=== PATIENT | male | born 1970 | race Caucasian/White ===

== ENCOUNTER 2018-10-04 10:41 | Inpatient (IN) | payer OTHER ==
[~2018-10-04] VITALS: Ht 160 cm; Wt 60.8 kg
--- NOTE | 2018-10-04 10:48 | NUR ---
PT CALLED FROM LOBBY TO TRIAGE, PT IN RESTROOM.
--- NOTE | 2018-10-04 11:00 | NUR ---
PATIENT ARRIVED TO ED WITH CAREGIVER C/O PAIN ON LEFT LEG, INNER THIGH AREA. PATIENT HAS HX OF DOWN SYNDROME AND MILD MENTAL RETARDATION. CAREGIVER STATES THAT PATIENT FELL YESTERDAY WHILE WALKING IN THE RAIN. UPON PALPATION, A LUMP WAS NOTED WITHIN THE INNER LEFT THIGH AREA. LUNGS ARE CLEAR, EVEN AND UNLABORED. NO OTHER S/S OF DISTRESS NOTED. WILL CONTINUE TO MONITOR.
--- NOTE | 2018-10-04 11:01 | NUR ---
PATIENTS CAREGIVER DENIES THAT PATIENT HIT HIS HEAD OR HAD ANY LOC.
--- NOTE | 2018-10-04 11:16 | NUR ---
PATIENT TAKEN TO XRAY. NO S/S OF DISTRESS NOTED.
--- NOTE | 2018-10-04 12:42 | NUR ---
PATIENT WHEELED FOR CT SCAN. NO ACUTE S/S OF DISTRESS NOTED.
[2018-10-04] MEDS ORDERED: KETOCONAZOLE2% TOP (14:58)
--- NOTE | 2018-10-04 15:17 | NUR ---
ORTHO MD HAS SEEN PT WITH HIS CAREGIVER PRESENT. DISCUSSED WITH CAREGIVER THAT THERE IS NO HX OTHER THAN MILD TO MODERATE M.R. AND DOWNS SYNDROME. IS COOPERATIVE ONLY TO SOME ASSESSMENTS, WOULD NOT TOLERATE EXTENDED SEARCH FOR PEDAL PULSES. WAS ABLE TO NOTE FEET- SKINS AND CAPILLARY REILL NORMAL AND EQUAL BILATERALLY, NORMALLY WEARS SUPPORT STOCKINGS FOR EDEMA. SLIGHTLY ELECTRIC WIRER DISTALLY, SIGNIFICANT SUPERFICIAL VERICOSE VEINS. BEHAVIOR: ADVISED TO PRE MED PO BENADRYL OR SEDATIVE FOR COOPERATION WITH ANY PROCEDURES.
--- NOTE | 2018-10-04 15:32 | NUR ---
ATTEMPTED TO START IV FOR ADMISSION, PATIENT REFUSED.
--- NOTE | 2018-10-04 15:41 | NUR ---
REPORT GIVEN TO DARLIN JAQUEZ ON MED SURG TELE FLOOR FOR FUTHER CARE OF PATIENT.
[2018-10-04 16:13] VITALS: BP 113/77
--- NOTE | 2018-10-04 16:25 | NUR ---
RECEVIED PT FROM ER. PT ADMIT FOR LEFT FEMERAL NECK FX, PT IS A/O X1, CONFUSED BUT FOLLOW COMMAND. LUNG SOUND CLEAR BILATERAL, NO COUGH, NO SOB, PT DENY ANY CHEST PAIN, BOWEL SOUND PRESENT ALL 4 QUADRANTS, NO DISTENTION, NO TENDER. PEDAL PULS PRESENT BOTH FEET, TRACE EDEMA BLE. PT C/O MILD PAIN AT LEFT HIP AREA. 11/27, NO IV SITE PIOR TO ARRIVE THE FLOOR. ACCORDING TO REPORT AND CAREGIVER, PT REFUSED TO BE INSERT THE IV AND VERY AGITATED WHILE TRIED IN ER. ALL ADLS ASSIST, ALL NEED MET, BED ALARM IS IN PLACE, CALL LIGHT WITHIN REACH. WILL CONTINUE TO MONITOR.
--- NOTE | 2018-10-04 17:50 | NUR ---
PT ON BED, EATING DINNER. MERCHANDISE CLERK AT BEDSIDE
--- NOTE | 2018-10-04 18:50 | NUR ---
BENADRYL ONE TIME GIVEN
--- NOTE | 2018-10-04 19:30 | NUR ---
REC'D PT FROM DAY NURSE. CAREGIVER MELANI AT BEDSIDE. PT RESTING IN BED. AAOX2-3. ORIENTED TO SELF, TIME, AND CITY. REORIENTED TO PLACE. SPEECH IMPAIRMENT BUT ABLE TO UNDERSTAND AT TIMES. FOLLOWS COMMANDS AND ABLE TO VERBALIZE NEEDS. HX DOWN SYNDROME WITH MILD MR. MED SURG, NO TELE. DENIES CP, DIZZINESS, OR PALPITATIONS. ABD SOFT/ROUND. DENIES ABD PAIN, TENDERNESS, OR N/V. USUALLY VOIDS FREELY BUT HAVING DIFFICULTY AT THIS TIME BC PT IS ON BEDREST AND CANNOT GET OOB. C/O PAIN TO LLE BY HIP, UNABLE TO RATE. WILL GIVE NORCO PER ORDER. SKIN INTACT. NO IV ACCESS AT THIS TIME. WILL ATTEMPT. CALL LIGHT WITHIN REACH, BED AT LOWEST POSITION. WILL CONTINUE TO MONITOR.
--- NOTE | 2018-10-04 19:59 | NUR ---
SPOKE TO DR. TILLMAN. MADE AWARE PT STILL DOES NOT HAVE IV ACCESS AND BENADRYL INEFFECTIVE IN CALMING TO PT TO ATTEMPT ACCESS. REQUESTED ONE TIME ATIVAN PO.
[2018-10-04 20:26] VITALS: BP 119/69
--- NOTE | 2018-10-04 20:45 | NUR ---
ATTEMPTED TO INSERT IV BUT PT REFUSING. MELANI, CAREGIVER, AT BEDSIDE. PT KEEPS PULLING ARMS AWAY AND SAYING NO. WILL TRY AGAIN LATER.
--- NOTE | 2018-10-04 21:27 | NUR ---
SECOND ATTEMPT FOR IV INSERTION. PT STILL REFUSING COVERING HIS ARMS WITH BLANKETS AND SAYING NO. STATES HE WILL LET US INSERT AN IV IN THE MORNING. WILL REATTEMPT IN AM.
--- NOTE | 2018-10-04 22:24 | NUR ---
PAGEGATED DR. TILLMAN. MADE AWARE BUCKS TRACTION- 7LBS NEEDS TO BE APPLIED ORDERED BY DR. ELLER.
--- NOTE | 2018-10-04 23:20 | NUR ---
BUCKS TRACTION APPLIED. LLE BOOT IN PLACE WITH 7 LBS FREE HANGING WEIGHT. PT RESTING IN BED WITH EYES CLOSED. APPEARS TO BE SLEEPING. CALL LIGHT WITHIN REACH, BED AT LOWEST POSITION. WILL CONTINUE TO MONITOR.
--- NOTE | 2018-10-05 03:55 | NUR ---
PT RESTING IN BED WITH EYES CLOSED. NO SIGNS OF DISTRESS NOTED. BREATHING EVEN/UNLABORED ON RA. BUCKS TRACTION IN PLACE- 7 LBS FREE HANGING WEIGHT. CALL LIGHT WITHIN REACH, BED AT LOWEST POSITION. WILL CONTINUE TO MONITOR.
--- NOTE | 2018-10-05 06:03 | NUR ---
ATTEMPTED IV INSERTION BUT PT STILL REFUSING. KEEPS PULLING HAND AWAY. OTHERWISE PT HAS BEEN CALM AND PLEASANT. SLEPT THROUGHOUT MOST OF THE NIGHT. DENIES PAIN. STATES HIS LEG "IS BETTER." BUCKS TRACTION IN PLACE. CALL LIGHT WITHIN REACH, BED AT LOWEST POSITION. WILL ENDORSE TO DAY NURSE.
--- NOTE | 2018-10-05 07:35 | NUR ---
PATIENT RESTING IN BED. SITTER AT BEDSIDE FOR SAFETY. PATIENT DENIES PAIN AT THIS TIME, INSTRUCTED PT TO CALL IF HE FEELS ANY PAIN. PATIENT IS A/OX3 (PERSON, PLACE, AND TIME). BUCKS TRACTION IN PLACE; 7LBS. WEIGHTS MAINTAINED OF THE FLOOR, PATIENT UNDERSTANDS HE IS TO REMAIN IN BED. DENIES SOB, PT ON ROOM AIR. NO IV ACCESS, PATIENT REFUSES IV INSERTION, DR REED AWARE. CALL LIGHT WITHIN REACH, BED IN LOW POSITION, SIDE RAILS UP X2. WILL CONTINUE TO MONITOR.
--- NOTE | 2018-10-05 10:10 | NUR ---
PATEINT REFUSED HEPARIN (SEE EMAR), DR REED AWARE. PT APPEARED SCARED OF NEEDLES. PT COVERED HIS ARM WHEN ATTEMPTING TO DEMONASTRATE THE INJECTION. NO FURTHER ORDERS AT THIS TIME. WILL CONTINUE TO MONITOR THE PATIENT.
[2018-10-05 12:20] VITALS: Ht 160 cm; Wt 60.8 kg
[2018-10-05 13:20] VITALS: BP 106/61
[2018-10-05 14:48] LABS: CARBON DIOXIDE 23.6 mmol/L (21-32); CHLORIDE SERUM 104 mmol/L (98-107); GFR1 > 60 mL/min; GLUCOSE SERUM 117 mg/dL (74-106); MAGNESIUM 2.2 mg/dL (1.8-2.4); PHOSPHOROUS 3.3 mg/dL (2.5-4.9); POTASSIUM SERUM 4.1 mmol/L (3.5-5.1); SODIUM SERUM 143 mmol/L (136-145)
[2018-10-05 14:50] LABS: PLATELET COUNT 230 x10^3mcL (130-400); RED CELL DISTRIBUTION WIDTH 14.1 % (11.5-14.5)
[2018-10-05 14:51] LABS: MAGNESIUM 2.1 mg/dL (1.8-2.4); PHOSPHOROUS 3.3 mg/dL (2.5-4.9)
[2018-10-05 14:53] LABS: CHOLESTEROL/HDL RATIO 2.4
--- NOTE | 2018-10-05 16:20 | NUR ---
PATIENT WILL OCCASIONALLY BIT DOWN ON RIGHT THUMB FINGER. WOUND WAS CLEANED PHOTOS DOCUMENTED AND PLACED A GAUZ AND TAPE, TO PREVENT PATIENT FROM BITTING FINGER. WILL MONITOR CONTINUE TO MONITOR.
[2018-10-05 16:53] VITALS: BP 96/49
--- NOTE | 2018-10-05 18:56 | NUR ---
PATIENT RESTING IN BED. NO ACUTE CHANGES THROUGH OUT SHIFT, PATIENT IS STABLE. DENIES PAIN AT THIS TIME. NO SOB NOTED, PATIENT ON ROOM ON AIR. BUCKS TRACTION IN PLACE; 7LBS. WEIGHTS MAINTAINED OFF THE FLOOR. NS IV INFUSING TO LFA AT 100ML/HR, CDI, NO REDNESS, SWELLING OR PAIN NOTED. CALL LIGHT WITHIN REACH, BED IN LOW POSITION, SIDE RAILS UP X2 FOR SAFETY PRECAUTION. WILL ENDORSE REPORT TO NIGHT NURSE.
--- NOTE | 2018-10-05 19:20 | NUR ---
REC'D PT FROM DAY NURSE. PARENTS AT BEDSIDE. PT RESTING IN BED. AAOX3. HX DOWN SYNDROME WITH MILD MR. SPEECH IMPAIRMENT BUT ABLE TO UNDERSTAND. FOLLOWS COMMANDS AND VERBALIZES NEEDS. MED SURG, NO TELE. DENIES CP, DIZZINESS, OR PALPITATIONS. NO EDEMA NOTED. DENIES RESP DISTRESS OR SOB. BREATHING EVEN/UNLABORED ON RA. ABD SOFT/ROUND. DENIES ABD PAIN, TENDERNESS, OR N/V. VOIDING FREELY. BUCKS TRACTION- 7 LBS ATTACHED TO LLE BOOT FREE HANGING WEIGHT. TRAPEZE IN PLACE. PT DENIES ANY PAIN TO THE HIP. SKIN INTACT. IV TO FLUSHED AND PATENT, SITE WNL. CALL LIGHT WITHIN REACH, BED AT LOWEST POSITION. WILL CONTINUE TO MONITOR.
[2018-10-05 20:41] VITALS: BP 115/73
--- NOTE | 2018-10-05 23:13 | NUR ---
PT RESTING IN BED. CALM AND PLEASANT. REPORTS PAIN TO LLE/HIP. UNABLE TO RATE BUT APPEARS COMFORTABLE. SMILING. TYLENOL GIVEN PER ORDER. BUCKS TRACTION IN PLACE. WILL CONTINUE TO MONITOR.
--- NOTE | 2018-10-06 00:51 | NUR ---
PT RESTING IN BED WITH EYES CLOSED. NO SIGNS OF DISTRESS NOTED. BREATHING EVEN/UNLABORED ON RA. CALL LIGHT WITHIN REACH, BED AT LOWEST POSITION. BUCKS TRACTION IN PLACE WITH 7 LBS FREE HANGING WEIGHT. WILL CONTINUE TO MONITOR.
[2018-10-06 02:27] LABS: microscopic required? NO
[2018-10-06 02:38] LABS: UA SPECIFIC GRAVITY 1.015 (1.005-1.035); urine erythrocyte NEGATIVE (NEGATIVE)
--- NOTE | 2018-10-06 06:09 | NUR ---
PT RESTING IN BED WITH EYES CLOSED. APPEARS TO BE SLEEPING. BREATHING EVEN/UNLABORED ON RA. BUCKS TRACTION IN PLACE. NO SIGNIFICANT CHANGES DURING SHIFT. CALL LIGHT WITHIN REACH, BED AT LOWEST POSITION. WILL ENDORSE TO DAY NURSE.
[2018-10-06 06:14] VITALS: BP 105/58
--- NOTE | 2018-10-06 07:25 | NUR ---
RECEIVED PATIENT RESTING COMFORTABLY IN BED WITH ROMERO'S TRACTION AT 7LBS. CIRCULATION MAINTAINED. NO C/O PAIN. IV TO LFA IS PATENT AND INFUSING NS @ 100 ML/HR. NO REDNESS OR PAIN. PT ON ROOM AIR. NO C/O SOB AND NO DISTRESS NOTED. ALL QUESTIONS AND CONCERNS ADDRESSED.
[2018-10-06 07:50] VITALS: BP 116/65
--- NOTE | 2018-10-06 10:16 | NUR ---
IN TO SEE PATIENT AND ADMINISTER MEDICATION (SEE EMAR).
--- NOTE | 2018-10-06 12:08 | NUR ---
IN TO SEE PATIENT AND CONTINUE FLUIDS. PT RESTING COMFORTABLY IN BED. ALL NEEDS MET.
--- NOTE | 2018-10-06 14:20 | NUR ---
IN TO SEE PATIENT AND ASSESS NEEDS. ALL NEEDS MET.
[2018-10-06 18:33] VITALS: BP 107/58
--- NOTE | 2018-10-06 19:35 | NUR ---
REPORT GIVEN TO JAZZMINE JAQUEZ. PT RESTING COMFORTABLY IN BED. ALL NEEDS MET. ALL QUESTIONS AND CONCERNS ADDRESSED. ALL CARES ENDORSED.
--- NOTE | 2018-10-06 20:00 | NUR ---
PT A/A/O X3 ABLE TO FOLLOW COMMAND AND MAKE NEEDS KNOWN. DENIES DIZZINESS AND HEADACHE. BREATH SOUNDS CLEAR. BREATHING EVEN AND UNLABORED ON ROOM AIR. DENIES CHEST PAIN AND PRESSURE. BOWEL SOUNDS ACTIVE. NO C/O N/V AND ABD PAIN. 7 LBS BUCKS TRACTION NOTED ON LLE. PT DENIES DISCOMFORT AND PAIN THUS FAR. IV INTACT ON THE LEFT FOREARM INFUSING WITH NS AT 100 ML/HR. MADE PT COMFORTABLE. PLACED CALL LIGHT WITH IN REACH. WILL CONTINUE TO MONITOR.
[2018-10-06 22:30] VITALS: BP 114/69
--- NOTE | 2018-10-07 00:58 | NUR ---
PT RESTING WITH EYES CLOSED. NO DISTRESS AND DISCOMFORT NOTED. WILL CONTINUE TO MONITOR.
[2018-10-07 05:24] VITALS: BP 105/70
[2018-10-07 06:09] LABS: BASOPHIL % 0.4 % (0-2); PLATELET COUNT 202 x10^3mcL (130-400)
[2018-10-07 06:34] LABS: CALCIUM 8.6 mg/dL (8.5-10.1); CARBON DIOXIDE 27.7 mmol/L (21-32); CHLORIDE SERUM 107 mmol/L (98-107); CREATININE SERUM 0.7 mg/dL (0.7-1.3); GFR1 > 60 mL/min; GLUCOSE SERUM 90 mg/dL (74-106); POTASSIUM SERUM 4.2 mmol/L (3.5-5.1); SODIUM SERUM 144 mmol/L (136-145)
--- NOTE | 2018-10-07 06:58 | NUR ---
PT QUIET AND RESTING. ADMITS TO DISCOMFORT AND DENIES NEED FOR PAIN MEDICATION. IV INTACT AND INFUSING ORDERED. BUCKS TRACTION IN PLACE. MADE PT COMFORTABLE. PLACED CALL LIGHT WITH IN REACH. WILL ENDORSE TO THE AM NURSE ACCORDINGLY.
--- NOTE | 2018-10-07 08:00 | NUR ---
RECEIVED PT IN BED A/A/OX3 HX DOWN SYNDROME AND MILD MR. PT ABLE TO VERBALIZE NEEDS AND FOLLOW COMMAND WITH MILDLY GARBLED SPEECH. RESP EVEN AND UNLABORED WITH CLEAR BS BILAT. DENIES ANY SOB/CP/PRESSURE. NO EDEMA NOTED WITH IVF TO LFA. ABD SOFT, NONTENDER WITH ACTIVE BS X4. USES URINAL. S/P FALL AT HOME WITH LT HIP FX. PT IN BUCKS TRACTION WITH 7LBS. ABLE TO REPOSITION SELF INDIPENDENTLY. CALL LIGHT IN REACH NEEDS ATTENDED TO.
--- NOTE | 2018-10-07 10:02 | NUR ---
REPORT GIVEN TO OR, MADE AWARE THAT PARENTS WANTED TO SPEAK WITH DR. CASTELLON PRIOR TO SIGNING CONSENT.
[2018-10-07 12:45] VITALS: BP 114/64
--- NOTE | 2018-10-07 12:55 | NUR ---
PT PICKED UP BY OR AND TAKEN DOWN FOR PROCEDURE. PT LEFT FLOOR FREE OF ANY APPARENT DISTRESS ACCOMPANIED BY FAMILY. CALL LIGHT IN REACH NEEDS ATTENDED TO.
--- NOTE | 2018-10-07 16:06 | NUR ---
PT BACK FROM OR S/P ORIF OF THE LT HIP WITH PLACEMENT OF 3 SCREWS. PT IS A/A/OX3 DENIES ANY DISCOMFORT. RESP EVEN AND UNLABORED. RECONNECTED BACK ON IVF ORDERED. PT DENIES ANY PAIN AT THIS TIME. SX SITE TO LT HIP WITH DRSG IN PLACE CDI, NO S/SX OF BLEEDING NOTED. FAMILY AT BEDSIDE. CALL LIGTH IN REACH NEEDS ATTENDED TO.
[2018-10-07 16:10] VITALS: BP 116/78
--- NOTE | 2018-10-07 17:00 | NUR ---
DRSG CHECK AT THIS TIME. REMAINS DRY AND INTACT. C/O MILD THROAT DISCOMFORT. MADE AWARE FROM INTUBATION DURING PROCEDURE. CALL LIGHT IN REACH NEEDS ATTENDED TO.
--- NOTE | 2018-10-07 18:10 | NUR ---
PT C/O PAIN TO LT LEG AND THROAT. MEDICATED WITH NORCO PO AND GIVEN PUDDING AND JELLO. IVF INFUSING. CALL LIGHT IN REACH NEEDS ATTENDED TO.
--- NOTE | 2018-10-07 19:20 | NUR ---
AOX3. MED SURG. LUNGS CLEAR ON RA. PULSES PALPABLE. NO EDEMA. BOWEL SOUNDS ACTIVE. VOIDS FREELY. LIMITED MOVEMENT TO LLE. S/P L HIP ORIF, DRESSING CDI. DRY SCAB NOTED TO R ABISAI NEWMAN. DENIES PAIN AT THIS TIME. IV TO LFA, PATENT AND INFUSING. SITTER AT BEDSIDE. BED IN LOWEST POSITION, 2 SIDE RAILS UP, CALL LIGHT IN REACH. INSTRUCTED TO CALL FOR ASSISTANCE.
[2018-10-07 21:18] VITALS: BP 96/52
--- NOTE | 2018-10-08 01:23 | NUR ---
RESTING IN BED WITH EYES CLOSED. BREATHING EVEN AND UNLABORED ON RA. NO ACUTE DISTRESS NOTED. SITTER AT BEDSIDE. WILL CONTINUE TO MONITOR.
[2018-10-08 05:31] VITALS: BP 99/42
--- NOTE | 2018-10-08 06:57 | NUR ---
NO ACUTE DISTRESS NOTED. NO ACUTE CHANGES. DRESSING TO L HIP, CDI. WILL ENDORSE TO ONCOMING RN.
--- NOTE | 2018-10-08 07:50 | NUR ---
RECEIVED PT IN BED A/A/OX3 FORGETFUL. DENIES GOMES. HX DOWN SYNDROME AND MILD MR. SLIGHTLY GARBLED SPEECH, ABLE TO COMMUNICATE NEEDS AND FOLLOW COMMANDS. RESP EVEN AND UNLABORED WITH CLEAR BS BILAT. DENIES ANY SOB/CP/PRESSURE. NOTED WITH TRACE EDEMA TO BLE L>R. IVF TO LFA. ABD SOFT, NONTENDER WITH ACTIVE BS X4. DENIES ANY N/V AT THIS TIME. VOIDING FREELY USES URINAL. S/P FALL AT HOME WITH LT HIP FX. S/P ORIF POD1. LT HIP WITH SX DRSG IN PLACE CDI. WITH ORDER FOR PT EVAL TODAY. DENIES ANY PAIN AT THIS TIME. CALL LIGHT IN REACH NEEDS ATTENDED TO.
--- NOTE | 2018-10-08 08:25 | NUR ---
PT C/O MILD PAIN MADE AWARE BY PT THAT THEY WILL WORK WITH PT WITH IN 1HR. PT PRE MEDICATED FOR PLANNED ACTIVITY. CALL LIGTH IN REACH NEEDS ATTENDED TO.
[2018-10-08 08:47] VITALS: BP 108/59
--- NOTE | 2018-10-08 15:08 | NUR ---
PT C/O MILD PAIN TO LLE. MEDICATED WITH NORCO PO ORDERED. CALL LIGHT IN REACH NEEDS ATTENDED TO.
--- NOTE | 2018-10-08 18:20 | NUR ---
PT RESTING AT THIS TIME. DENIES ANY DISCOMFORT. CALL LIGHT IN REACH NEEDS ATTENDED TO.
[2018-10-08 19:51] VITALS: BP 104/57
--- NOTE | 2018-10-08 20:00 | NUR ---
RECEIVED PT FROM PREVIOUS SHIFT. PT AWAKE/ALERT. DENIES PAIN. NO S/S OF SOB ON ROOM AIR. TRAPEZE ON BED S/P ORIF TO L FEMORAL NECK. IV TO LFA PATENT, INFUSING NS AT 100ML/HR WITH NO S/S OF INFILTRATION. CALL LIGHT WITHIN REACH, BED IN LOW POSITION. WILL CONTINUE TO MONITOR.
--- NOTE | 2018-10-09 02:00 | NUR ---
PT SLEEPING. NO SIGNS OF ACUTE DISTRESS. RR EVEN/UNLABORED. CALL LIGHT WITHIN REACH. BED IN LOW POSITION. WILL CONTINUE TO MONITOR.
[2018-10-09 05:27] VITALS: BP 111/67
--- NOTE | 2018-10-09 06:10 | NUR ---
NO ACUTE CHANGES THROUGHOUT SHIFT. PT RESTING IN NO DISTRESS. CALL LIGHT WITHIN REACH, BED IN LOW POSITION. WILL ENDORSE CARE TO ONCOMING SHIFT.
--- NOTE | 2018-10-09 07:49 | NUR ---
REPORT TAKEN FROM TIMBER MANAGEMENT SPECIALIST NURSE AT THE BEDSIDE. PT RESTING COMFORTABLY AT THIS TIME. AWAKE AND ALERT OX3. TRACE EDEMA TO THE LOWER EXT BILATERALLY. LUNGS CTAB. BOWEL SOUNDS POSITIVE, FLAT NON TENDER. LEFT HIP DRESSING INTACT, DRY, AND CLEAN. IV TO LEFT FA WNL.
[2018-10-09 08:44] VITALS: BP 92/41
--- NOTE | 2018-10-09 13:09 | NUR ---
PT IN NAD AT THIS TIME, VISITING WITH FAMILY, TOLERATED PT WELL AND GOT OUT OF THE BED. DENIED PAIN AT THIS TIME. WILL CONTINUE TO MONITOR.
[2018-10-09 13:19] VITALS: BP 92/41
[2018-10-09 14:04] VITALS: BP 103/64
--- NOTE | 2018-10-09 14:56 | NUR ---
I SPOKE TO MELANI WHO SPOKE TO THE PT FATHER. THE FATHER IS NO COMFORTABLE WITH THE PT BEING DC'D TO THE SNF WITH PHYSICAL THERAPY ORDERS. THE FATHER WOULD RATHER THE PT BE DC'D TO REHAB WHERE HE COULD GET THERAPY IN THAT SETTING. I CALLED PRADEEP ERVIN TO NOTIFY OF FATHERS WISHES. PRADEEP ERVIN GAVE TELEPHONE ORDER FOR CASE MANAGEMENT TO ARRANGE TRANSPORT AND PHYSICAL THERAPY AT THE REHAB LOCATION.
[2018-10-09 16:45] VITALS: BP 102/53
--- NOTE | 2018-10-09 17:42 | NUR ---
CARE HOMEVICE PRESIDENT OF CONTRACTS MELANI GIVEN COPY OF DISCHARGE PAPER WORK. SHE WAS MADE AWARE OF PLAN TO DC PATIENT TO [facility]. SHE VERBALIZED UNDERSTANDING.
--- NOTE | 2018-10-09 18:55 | NUR ---
REPORT GIVEN TO KENTRELL AT [facility]. [facility] TRANSPORT TO ARRIVE AT 2030. PT IS IN NAD AT THIS TIME. WILL REPORT TO LEGAL SPECIALIST NURSE.
--- NOTE | 2018-10-09 19:35 | NUR ---
PT IN BED AWAKE VERBAL MENTALLY DELAYED BUT ABLE TO FOLLOW SOME COMMANDS AND ANSWERS QUESTION APPROPRIATELY, DENIES PAIN NO DISTRESS, INTACT DRESSING TO SURG INCISION SITE LT HIP CDI, NO SIGNS OF BLEEDING, PT FOR TRANSFER TO [facility] FOR REHAB PT/OT, AWAITING FOR TRANSPORTATION, FOLLOWED UP AND TRANSPORT IS ON THE WAY, CALL LIGHT AT REACH, CONT TO MONITOR.
--- NOTE | 2018-10-09 20:04 | NUR ---
TRANSPORT CAME FOR FOREST MANAGEMENT PROFESSOR, ENDORSED PAPERWORK TO THE REINFORCING ROD LAYER, PT TRANSPORTED OUT VIA WHEELCHAIR, HIP PREC OBSERVED DURING TRANSFER FROM BED TO WHEELCHAIR, DC'D HEPLOCK AND REMOVED ID BAND, PT DENIES PAIN DURING TRANSFER, CALLED [facility] PREV PLACEMENT C/O MELANI INFORMED RE TRANSFER TO [facility].
== END 2018-10-09 20:04 | DRG 482 ==
LOC: ED 10:41 → MU 14:51
PROVIDERS: Neuromusculoskeletal Medicine, Sports Medicine; ADMIT Family Medicine
PROC: 0QS704Z Reposition Left Upper Femur with Internal Fixation Device, Open Approach (ICD-10-PCS; principal; 2018-10-07 13:30)
DX: S72.032A Displaced midcervical fracture of left femur, initial encounter for closed fracture (principal); Q90.9 Down syndrome, unspecified; F70 Mild intellectual disabilities; W18.39XA Other fall on same level, initial encounter; Y93.01 Activity, walking, marching and hiking; Y92.838 Other recreation area as the place of occurrence of the external cause; Z68.22 Body mass index [BMI] 22.0-22.9, adult; Z91.14 Patient's other noncompliance with medication regimen
CPT/HCPCS: 83880; 97110-GP; 97112-GP; 97116-GP; 97530-GP; C1713; J0690; J1170; J1644; J2250; J2405; J2704; J3010; J3490; J7030; J7060; J7120; Q0092; Q0163